=== PATIENT | male | born 1985 ===

== ENCOUNTER 2016-06-20 09:04 | Emergency (ER) | payer OTHER ==
[2016-06-20 09:42] VITALS: BP 172/96
--- NOTE | 2016-06-20 11:40 | UC ---
Jan Paul Anna, scribed for Vanessa Wilson MD on 06/20/16 at 1006 . Psychiatric Complaint HPI - HPI Summary HPI Summary: Patient is a 31 y/o male coming to [facility] requesting further evaluation and treatment for progressing worse anger concerns. 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 He reports that he was placed on admin leave 2/2 anger issues, after slamming cups together, throwing cups. Apparently there were some further allegations too about coworkers being unsafe. This is per pt self report here. He notes worsening stress that has been ongoing for a while. 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 He reports that when he becomes upset he sometimes wants to start punching his head, which he did as a child. He saw a counselor once last week, "Damián" at [facility] through [employer]. The patient was uncertain about his employment situation so was not sure if he would be able to return to his job or to the counselor at [facility]. He has been contemplating seeking help for "a while," but today felt overwhelmed to the point of bringing himself here today. General ros essentially noncontributory. No recent illness, headaches, vis / aud changes. He does have a hx of OU amblyopia. No fever / chills. No sob / cp / palpitations. No GI issues. No p/d/w. Able to eat ok. Does not drink alcohol, denies substance abuse. Does drink one cup caffeine in the mornings. No b/b complaints. No rash. - History Of Current Complaint Chief Complaint: UCGeneralIllness Stated Complaint: PANIC ATTACKS Hx Obtained From: Patient Onset/Duration: Still Present Timing: Days - Allergies/Home Medications Allergies/Adverse Reactions: Allergies Allergy/AdvReac Type Severity Reaction Status Date / Time No Known Allergies Allergy Verified 08/01/15 16:56 Home Medications: Home Medications NK [No Home Medications Reported] 06/20/16 [History Confirmed 06/20/16] PMH/Surg Hx/FS Hx/Imm Hx - Additional Past Medical History Additional PMH: Bilateral lazy eyes Previously Healthy: Yes Cardiovascular History Of: Denies: Cardiac Disorders, Hypertension - Surgical History Surgical History: Yes Surgery Procedure, Year, and Place: Eye surgery, 1988, [place] - Family History Known Family History: Positive: Other - Hx psychiatric issues in mother and brother - Social History Occupation: Employed Full-time - currently administative leave Alcohol Use: Rare Substance Use Type: None Smoking Status (MU): Never Smoked Tobacco Review of Systems Constitutional: Negative Skin: Negative Eyes: Negative - amblypia. No new vis issues. ENT: Negative Respiratory: Negative Cardiovascular: Negative Gastrointestinal: Negative Genitourinary: Negative Motor: Negative Neurovascular: Negative Musculoskeletal: Negative Neurological: Negative Psychological: Other - See HPI. All Other Systems Reviewed And Are Negative: Yes Physical Exam Triage Information Reviewed: Yes Appearance: Well-Nourished Vital Signs: Initial Vital Signs Temp 98.6 F 06/20/16 09:30 Pulse 71 06/20/16 09:30 Resp 16 06/20/16 09:30 BP 172/96 06/20/16 09:30 Pulse Ox 100 06/20/16 09:30 Vital Signs Reviewed: Yes Eye Exam: Normal - amblyopia. Focuses mostly from L eye(states normal). PERRLA. Fundi (nondilated grossly benign). Scl white. Conj pink. ENT Exam: Normal Neck exam: Normal - No adenopathy appreciated Respiratory Exam: Normal - Normal, no dyspnea, no tachypnea, normal respiratory rate Respiratory: Positive: Chest non-tender, Lungs clear, Normal breath sounds, No respiratory distress, No accessory muscle use Cardiovascular Exam: Normal - HR regular, good general skin color, good capillary refill Cardiovascular: Positive: RRR, No Murmur, Pulses Normal, Brisk Capillary Refill Abdominal Exam: Normal Abdomen Description: Positive: Nontender, No Organomegaly, Soft Bowel Sounds: Positive: Present Musculoskeletal Exam: Normal Musculoskeletal: Positive: Strength Intact - gait steady. Moves all 4 ext's ok. Neurological Exam: Normal - Nonfocal. CN-s 2 - 12 intact. No c/o smell issues. Psychological Exam: Other - converses easily and appropriately, in full sentances. Somewhat tearful. Expresses concern and desire for psychiatric help. Skin Exam: Normal - Normal visible or reported rash Psych Complaint Course/Dx - Course Course Of Treatment: Upon detailed questioning, Mr. Street expresses concern that he is overwhelmed; and that he has "blackouts." During those times he reports that he is not sure what is happening, nor can he recall what has happened during those times. Indeed, he is concerned that a blackout will happen again, and during that time he could or would harm himself or someone else. At the particular moment of my encounter, he denies SI/HI. However, he does not feel safe to himself or others, and is not sure what would or is going to happen in the immediate or near future. Mr. Street agrees to go to the Emergency Department for further evaluation and treatment. He agrees to go via EMS. I called the Emergency Department, spoke with Dr. Stern. Upon departure from the [facility], he appeared to be in the same baseline physical state as per his arrival. - Differential Dx/Diagnosis Provider Diagnoses: Emotional instability, harmful idealogy. Discharge - Discharge Plan Condition: Guarded Disposition: TRANS HIGHER LVL OF CARE FAC Discharge Disposition Comment: To [facility] [place] [facility] Referrals: [facility] [Outside] The documentation as recorded by the Jan card Anna accurately reflects the service I personally performed and the decisions made by me, Vanessa Wilson MD.
== END 2016-06-20 11:05 | disposition short-term general hospital (02) ==
LOC: UCEAST 09:04
DX: F60.3 Borderline personality disorder (principal)
CPT/HCPCS: 99213; G0463

== ENCOUNTER 2016-06-20 11:18 | Emergency (ER) | payer OTHER ==
[2016-06-20 12:28] LABS: Hematocrit 45 % (42-52); Hemoglobin 15.2 g/dl (14.0-18.0); Mean Corpuscular HGB Conc 34 g/dl (31-36); Mean Corpuscular Hemoglobin 29 pg (27-31); Mean Corpuscular Volume 86 fL (80-94); Mean Platelet Volume 9 um3 (7.4-10.4); Red Blood Count 5.23 10^6/ul (4.0-5.4); Red Cell Distribution Width 13 % (10.5-15); White Blood Count 7.2 10^3/ul (3.5-10.8)
[2016-06-20 12:30] LABS: Urine Bilirubin Negative (Negative); Urine Glucose Negative (Negative); Urine Nitrite Negative (Negative)
[2016-06-20 12:40] LABS: Benzodiazepine Urine Screen None Detected (None Detect)
[2016-06-20 12:44] LABS: ALT 75 U/L (7-52); AST 31 U/L (13-39); Albumin 4.7 g/dL (3.2-5.2); Alkaline Phosphatase 71 U/L (34-104); Anion Gap 10 mmol/L (2-11); BUN/Creatinine Ratio 12.5 (8-20); Blood Urea Nitrogen 11 mg/dL (6-24); CO2 Carbon Dioxide 26 mmol/L (22-32); Calcium 9.5 mg/dL (8.6-10.3); Chloride 102 mmol/L (101-111); EGFR African American 131.7 (>60); EGFR Non-African American 102.4 (>60); Globulin 3.2 g/dL (2-4); Glucose 104 mg/dL (70-100); Potassium 3.5 mmol/L (3.5-5.0); Sodium 138 mmol/L (133-145); Total Protein 7.9 g/dL (6.4-8.9)
[2016-06-20 12:57] LABS: Acetaminophen < 15 mcg/mL; Alcohol < 10 mg/dL (<10); Salicylate < 2.50 mg/dL (<30)
[2016-06-20 13:07] LABS: TSH (Thyroid Stimulating Horm) 2.87 mcIU/mL (0.34-5.60)
[2016-06-20 13:56] VITALS: BP 137/82
--- NOTE | 2016-07-01 17:37 | ED ---
Nadia Paul Matthew, scribed for Dustin Stern MD on 06/20/16 at 1222 . Altered Mental Status - HPI Summary HPI Summary: A 31 y/o male presents to the ED with altered mental status. The patient would like to speak with a counselor. He states that his home life is causing him a lot of stress. At home, he has a mother who is Dx with PTSD and she's constantly taking to voice which aren't there. His brother has angry problems and refuses to get his regional owner operator truck driver license, so the patient has to drive him around. He works at [employer] in the [employer] department and the stress as been carrying over into his job. He'll take out his anger by smashing boxes and glasses while at work. He has never seen or talked to voices. He has no homicidal or suicidal ideation. He's been receiving counseling through [place], which has been going well; however, his job is in question and he's not sure he'll be able to receive care there anymore. - History Of Current Complaint Chief Complaint: EDMentalHealth Stated Complaint: 941 Time Seen by Provider: 06/20/16 11:27 Hx Obtained From: Patient Onset/Duration: Still Present Timing: Constant Severity Initially: Moderate Severity Currently: Moderate Aggravating Factor(s): Other - Family Alleviating Factor(s): Unknown Associated Signs And Symptoms: Positive: Negative - Allergies/Home Medications Allergies/Adverse Reactions: Allergies Allergy/AdvReac Type Severity Reaction Status Date / Time No Known Allergies Allergy Verified 08/01/15 16:56 PMH/Surg Hx/FS Hx/Imm Hx Previously Healthy: Yes Endocrine/Hematology History: Denies: Hx Diabetes Infectious Disease History: No Infectious Disease History: Denies: History Other Infectious Disease, Traveled Outside the [place] in Last 30 Days - Family History Family History: Hx of psychiatric issues in both his mother and father - Social History Alcohol Use: Rare Substance Use Type: Reports: None Smoking Status (MU): Never Smoked Tobacco Review of Systems Constitutional: Negative Negative: Fever, Chills Eyes: Negative Negative: Erythema ENT: Negative Negative: Sore Throat Cardiovascular: Negative Negative: Chest Pain Respiratory: Negative Gastrointestinal: Negative Negative: Abdominal Pain, Vomiting, Nausea Genitourinary: Negative Negative: dysuria, incontinence Musculoskeletal: Negative Negative: Myalgia, Edema Skin: Negative Negative: Rash Neurological: Negative Negative: Headache All Other Systems Reviewed And Are Negative: Yes Physical Exam Triage Information Reviewed: Yes Vital Signs On Initial Exam: Initial Vitals Temp Pulse Resp BP Pulse Ox 97.8 F 75 20 140/101 100 06/20/16 11:20 06/20/16 11:20 06/20/16 11:20 06/20/16 11:20 06/20/16 11:20 Vital Signs Reviewed: Yes Appearance: Positive: No Pain Distress, Well-Nourished Skin: Positive: Warm, Dry Head/Face: Positive: Other - Normocephalic; Atraumatic Eyes: Positive: Other: - strabismus in the right eye ENT: Positive: Normal ENT inspection Dental: Negative: Cervical Lymphadenopathy Neck: Positive: Supple, Nontender, No Lymphadenopathy, Other: - Full ROM Respiratory/Lung Sounds: Positive: Breath Sounds Present, Other - Normal Effort. Negative: Rales, Rhonchi, Stridor, Tracheal Deviation, Wheezes Cardiovascular: Positive: RRR. Negative: Murmur Abdomen Description: Positive: Nontender, Soft, Other: - No REBOUND. Negative: Distended, Guarding Bowel Sounds: Positive: Present Musculoskeletal: Negative: Edema Left, Edema Right Neurological: Positive: Alert, Oriented to Person Place, Time Diagnostics - Vital Signs Vital Signs Temp Pulse Resp BP Pulse Ox 06/20/16 11:20 97.8 F 75 20 140/101 100 - Laboratory Lab Results: Lab Results 06/20/16 06/20/16 06/20/16 Range/Units 11:20 12:10 12:10 WBC 7.2 (3.5-10.8) 10^3/ul RBC 5.23 (4.0-5.4) 10^6/ul Hgb 15.2 (14.0-18.0) g/dl Hct 45 (42-52) % MCV 86 (80-94) fL MCH 29 (27-31) pg MCHC 34 (31-36) g/dl RDW 13 (10.5-15) % Plt Count 286 (150-450) 10^3/ul MPV 9 (7.4-10.4) um3 Neut % (Auto) 56.8 (38-83) % Lymph % (Auto) 31.3 (25-47) % [place] % (Auto) 7.2 (1-9) % Eos % (Auto) 4.2 (0-6) % Baso % (Auto) 0.5 (0-2) % Absolute Neuts (auto) 4.1 (1.5-7.7) 10^3/ul Absolute Lymphs (auto) 2.3 (1.0-4.8) 10^3/ul Absolute Monos (auto) 0.5 (0-0.8) 10^3/ul Absolute Eos (auto) 0.3 (0-0.6) 10^3/ul Absolute Basos (auto) 0 (0-0.2) 10^3/ul Absolute Nucleated RBC 0.02 10^3/ul Nucleated RBC % 0.2 Sodium 138 (133-145) mmol/L Potassium 3.5 (3.5-5.0) mmol/L Chloride 102 (101-111) mmol/L Carbon Dioxide 26 (22-32) mmol/L Anion Gap 10 (2-11) mmol/L BUN 11 (6-24) mg/dL Creatinine 0.88 (0.67-1.17) mg/dL Est GFR ( Amer) 131.7 (>60) Est GFR (Non-Af Amer) 102.4 (>60) BUN/Creatinine Ratio 12.5 (8-20) Glucose 104 H (70-100) mg/dL Calcium 9.5 (8.6-10.3) mg/dL Total Bilirubin 0.50 (0.2-1.0) mg/dL AST 31 (13-39) U/L ALT 75 H (7-52) U/L Alkaline Phosphatase 71 (34-104) U/L Total Protein 7.9 (6.4-8.9) g/dL Albumin 4.7 (3.2-5.2) g/dL Globulin 3.2 (2-4) g/dL Albumin/Globulin Ratio 1.5 (1-3) TSH 2.87 (0.34-5.60) mcIU/mL Urine Color Yellow Urine Appearance Clear Urine pH 5.0 (5-9) Ur Specific [place] 1.027 (1.010-1.030) Urine Protein Negative (Negative) Urine Ketones Negative (Negative) Urine Blood Negative (Negative) Urine Nitrate Negative (Negative) Urine Bilirubin Negative (Negative) Urine Urobilinogen Negative (Negative) Ur Leukocyte Esterase Negative (Negative) Urine Glucose Negative (Negative) Salicylates < 2.50 (<30) mg/dL Urine Opiates Screen (None Detect) Acetaminophen < 15 mcg/mL Ur Barbiturates Screen (None Detect) Ur Phencyclidine Scrn (None Detect) Ur Amphetamines Screen (None Detect) U Benzodiazepines Scrn (None Detect) Urine Cocaine Screen (None Detect) U Cannabinoids Screen (None Detect) Serum Alcohol < 10 (<10) mg/dL 06/20/16 Range/Units 12:10 WBC (3.5-10.8) 10^3/ul RBC (4.0-5.4) 10^6/ul Hgb (14.0-18.0) g/dl Hct (42-52) % MCV (80-94) fL MCH (27-31) pg MCHC (31-36) g/dl RDW (10.5-15) % Plt Count (150-450) 10^3/ul MPV (7.4-10.4) um3 Neut % (Auto) (38-83) % Lymph % (Auto) (25-47) % [place] % (Auto) (1-9) % Eos % (Auto) (0-6) % Baso % (Auto) (0-2) % Absolute Neuts (auto) (1.5-7.7) 10^3/ul Absolute Lymphs (auto) (1.0-4.8) 10^3/ul Absolute Monos (auto) (0-0.8) 10^3/ul Absolute Eos (auto) (0-0.6) 10^3/ul Absolute Basos (auto) (0-0.2) 10^3/ul Absolute Nucleated RBC 10^3/ul Nucleated RBC % Sodium (133-145) mmol/L Potassium (3.5-5.0) mmol/L Chloride (101-111) mmol/L Carbon Dioxide (22-32) mmol/L Anion Gap (2-11) mmol/L BUN (6-24) mg/dL Creatinine (0.67-1.17) mg/dL Est GFR ( Amer) (>60) Est GFR (Non-Af Amer) (>60) BUN/Creatinine Ratio (8-20) Glucose (70-100) mg/dL Calcium (8.6-10.3) mg/dL Total Bilirubin (0.2-1.0) mg/dL AST (13-39) U/L ALT (7-52) U/L Alkaline Phosphatase (34-104) U/L Total Protein (6.4-8.9) g/dL Albumin (3.2-5.2) g/dL Globulin (2-4) g/dL Albumin/Globulin Ratio (1-3) TSH (0.34-5.60) mcIU/mL Urine Color Urine Appearance Urine pH (5-9) Ur Specific [place] (1.010-1.030) Urine Protein (Negative) Urine Ketones (Negative) Urine Blood (Negative) Urine Nitrate (Negative) Urine Bilirubin (Negative) Urine Urobilinogen (Negative) Ur Leukocyte Esterase (Negative) Urine Glucose (Negative) Salicylates (<30) mg/dL Urine Opiates Screen None detected (None Detect) Acetaminophen mcg/mL Ur Barbiturates Screen None detected (None Detect) Ur Phencyclidine Scrn None detected (None Detect) Ur Amphetamines Screen None detected (None Detect) U Benzodiazepines Scrn None detected (None Detect) Urine Cocaine Screen None detected (None Detect) U Cannabinoids Screen None detected (None Detect) Serum Alcohol (<10) mg/dL Result Diagrams: 06/20/16 12:10 06/20/16 12:10 Lab Statement: Any lab studies that have been ordered have been reviewed, and results considered in the medical decision making process. Altered Mental Statu Course/Dx - Course Course Of Treatment: The patient is clear for MHE. - Diagnoses Discharge Diagnoses: MHE Discharge - Discharge Plan Condition: Stable Disposition: HOME Referrals: No Primary Care Phys,NOPCP [Primary Care Provider] - The documentation as recorded by the Naida card Matthew accurately reflects the service I personally performed and the decisions made by , Dustin Stern MD.
== END 2016-06-20 17:12 | disposition home or self-care (01) ==
LOC: ED 11:18
DX: R41.82 Altered mental status, unspecified (principal); Z00.8 Encounter for other general examination
CPT/HCPCS: 36415; 80053; 80307; 80320; 80329; 81003; 84443; 85025; 99283; G0480